=== PATIENT | male | born 1955 | race Caucasian/White ===

== ENCOUNTER 2016-12-13 14:07 | Emergency (ER) | payer BC ==
[~2016-12-13] VITALS: Ht 180.3 cm; Wt 95.8 kg
[~2016-12-13 14:07] MED LIST: ADVAIR HFA120 INHALA IH; ALBUTEROL2.5 MG/3 M IH; ALTACE2.5 MG PO; ASPIR 8181 M1 PO; ATORVASTATIN CA80 MG PO; BENZONATATE100 MG PO; LEVAQUIN500 MG PO; LEVOFLOXACIN750 MG PO; LIPITOR80 MG PO; LITE COAT ASPI325 M1 PO; LORAZEPAM1 MG PO; METOPROLOL SUCC50 MG PO; METOPROLOL TART50 MG PO; NICOTINE PATCH1 EAC2 TD; PERCOCET 5/31 TABLET PO; PRAVACHOL80 MG PO; PREDNISONE10 MG PO; PREDNISONE20 MG PO; PROPRANOLOL HCL40 MG PO; RAMIPRIL2.5 MG PO; ROPINIROLE HCL0.5 MG PO; ROPINIROLE HCL2 MG PO; SERTRALINE HCL50 MG PO; SPIRIVA RESPIMAT4 GM IH; VENTOLIN HFA18 GM IH; ZITHROMAX Z-PA250 MG PO; ZITHROMAX500 MG PO; ZOLOFT50 MG PO
[2016-12-13] MEDS ORDERED: KEFLEX500 MG PO (20:00)
[2016-12-13 20:07] VITALS: BP 130/83
== END 2016-12-13 20:12 | disposition home or self-care (01) ==
LOC: EME 14:07
DX: L03.116 Cellulitis of left lower limb (principal); M79.605 Pain in left leg; E78.5 Hyperlipidemia, unspecified; I10 Essential (primary) hypertension; I25.2 Old myocardial infarction; F17.200 Nicotine dependence, unspecified, uncomplicated; Z95.5 Presence of coronary angioplasty implant and graft; Z88.0 Allergy status to penicillin
CPT/HCPCS: 93926; 93971; 99281; 99284

== ENCOUNTER 2017-09-03 06:33 | Observation (INO) | payer BC ==
[~2017-09-03] VITALS: Ht 180.3 cm; Wt 90.6 kg
[~2017-09-03 06:33] MED LIST changes: +KEFLEX500 MG PO
[2017-09-03 07:12] LABS: BASOPHIL COUNT 0.1 K/uL (0-0.1); EOSINOPHIL (%) 3.2 % (0-5); EOSINOPHIL COUNT 0.3 K/uL (0-0.3); HEMATOCRIT 49.2 % (38.0-50.0); IMMATURE GRANULOCYTE (%) 0.2 % (0.0-0.7); INSTRUMENT ABS NEUTROPHIL CT 5.4 K/uL; LYMPHOCYTE COUNT 2.1 K/uL (1.0-2.8); MCH 33.8 PG (29.0-34.0); MCHC 34.1 G/DL (30.0-36.0); MEAN PLAT.VOLUME 9.6 uM^3 (9.0-12.4); MONOCYTE (%) 8.7 % (3-12); MONOCYTE COUNT 0.8 K/uL (0-0.8); NEUTROPHIL (%) 62.5 % (45-76); NEUTROPHIL COUNT 5.4 K/uL (1.8-6.4); PLATELET COUNT 297 K/uL (156-360); RBC DIS.WIDTH-CV 13.6 % (11.8-14.6); RBC DIS.WIDTH-SD 49.9 % (39-53); RED BLOOD COUNT 4.97 M/uL (4.00-5.50); WHITE BLOOD COUNT 8.7 K/uL (4.1-10.2)
[2017-09-03 07:36] LABS: ANION GAP 7 MEQ/L (2-14); CHLORIDE 102 MEQ/L (99-109); POTASSIUM 4.7 MEQ/L (3.7-5.4); SAMPLE HEMOLYSIS CHECK 0; SAMPLE ICTERIC CHECK 0; SAMPLE LIPEMIA CHECK 0; SODIUM 136 MEQ/L (136-147)
[2017-09-03 07:41] LABS: TROP-I INTERPRETATION NEGATIVE; TROPONIN-I < 0.01 ng/mL (0.0-0.30)
[2017-09-03 07:42] LABS: GFR ESTIMATE (CALCULATED) > 59 mL/min/; GLUCOSE 113 mg/dL (70-99); UREA NITROGEN (BUN) 11 mg/dL (9-23)
[2017-09-03] MEDS ORDERED: COUMADIN5 MG PO (08:53)
[2017-09-03 10:28] VITALS: BP 129/81
[2017-09-03 14:39] LABS: TROP-I INTERPRETATION NEGATIVE; TROPONIN-I 0.01 ng/mL (0.0-0.30)
[2017-09-03 14:54] VITALS: BP 106/60
[2017-09-03 17:06] LABS: INTER. NORMALIZED RATIO 1.1; PROTHROMBIN TIME 12.2 SEC (10.2-12.9)
[2017-09-03 20:00] VITALS: BP 171/70
[2017-09-03 20:20] LABS: TROP-I INTERPRETATION NEGATIVE; TROPONIN-I < 0.01 ng/mL (0.0-0.30)
[2017-09-03 20:56] VITALS: BP 127/68
[2017-09-03 23:51] VITALS: BP 112/61
[2017-09-04 04:13] VITALS: BP 128/86
[2017-09-04 06:03] LABS: INTER. NORMALIZED RATIO 1.1; PROTHROMBIN TIME 12.4 SEC (10.2-12.9)
[2017-09-04 09:08] VITALS: BP 115/75
[2017-09-04] MEDS ORDERED: LIPITOR20 MG PO (09:40)
[2017-09-04] MEDS ORDERED: NITROSTAT0.4 MG SL (09:40)
[2017-09-04] MEDS ORDERED: ASPIRIN81 M2 PO (09:40)
== END 2017-09-04 10:34 | disposition home or self-care (01) ==
LOC: EME 06:33 → EDOF 08:28 → 5WEST 08:28 → ENRESERV 08:30 → 5WEST 10:25
PROVIDERS: Emergency Medicine; Internal Medicine
DX: R07.9 Chest pain, unspecified (principal); I25.10 Atherosclerotic heart disease of native coronary artery without angina pectoris; E78.5 Hyperlipidemia, unspecified; I10 Essential (primary) hypertension; Z95.5 Presence of coronary angioplasty implant and graft; I25.2 Old myocardial infarction; I28.1 Aneurysm of pulmonary artery; J90 Pleural effusion, not elsewhere classified; J44.9 Chronic obstructive pulmonary disease, unspecified; F17.210 Nicotine dependence, cigarettes, uncomplicated; G25.81 Restless legs syndrome; Z87.442 Personal history of urinary calculi; F41.9 Anxiety disorder, unspecified; Z79.01 Long term (current) use of anticoagulants; Z90.49 Acquired absence of other specified parts of digestive tract; Z88.0 Allergy status to penicillin; Z82.49 Family history of ischemic heart disease and other diseases of the circulatory system
CPT/HCPCS: 71010; 80048; 84484; 85025; 85610; 93005; 94640; 94640 76; 99202; 99281; 99285; G0378; J1650

== ENCOUNTER 2017-09-19 13:20 | Inpatient (IN) | payer BC ==
[~2017-09-19] VITALS: Ht 180.3 cm; Wt 86.2 kg
[~2017-09-19 13:20] MED LIST changes: +ASPIRIN81 M2 PO; +COUMADIN5 MG PO; +LIPITOR20 MG PO; +NITROSTAT0.4 MG SL; +ZOLOFT100 MG PO; -ZOLOFT50 MG PO
[2017-09-19 14:21] LABS: HEMATOCRIT 46.8 % (38.0-50.0); MCHC 33.8 G/DL (30.0-36.0); MCV 97.7 FL (86-99); MEAN PLAT.VOLUME 10.3 uM^3 (9.0-12.4); PLATELET COUNT 230 K/uL (156-360); RBC DIS.WIDTH-CV 12.9 % (11.8-14.6); RBC DIS.WIDTH-SD 46.5 % (39-53); RED BLOOD COUNT 4.79 M/uL (4.00-5.50); WHITE BLOOD COUNT 13.5 K/uL (4.1-10.2)
[2017-09-19 14:51] LABS: ANION GAP 9 MEQ/L (2-14); CHLORIDE 98 MEQ/L (99-109); GFR ESTIMATE (CALCULATED) > 59 mL/min/; GLUCOSE 112 mg/dL (70-99); POTASSIUM 4.7 MEQ/L (3.7-5.4); SAMPLE HEMOLYSIS CHECK 0; SAMPLE ICTERIC CHECK 0; SAMPLE LIPEMIA CHECK 0; SODIUM 134 MEQ/L (136-147); UREA NITROGEN (BUN) 16 mg/dL (9-23)
[2017-09-19 15:18] LABS: BASE EXCESS 0.8 mEq/L (-3 to +3); BICARBONATE 24.3 mEq/L (22-26); CARBOXY HGB 2.8 % (0-5); COMMENTS - BLOOD GASES A+C+; DEVICE NC; METHEMOGLOBIN 1.1 % (0-1.5); O2 FLOW 6 L/MIN; PCO2 35 mm Hg (35-45); PO2 77 mm Hg (80-100); SITE RR; TOTAL RESP RATE 31 resp/min; pH 7.45 (7.35-7.45)
[2017-09-19 15:48] LABS: TROP-I INTERPRETATION NEGATIVE; TROPONIN-I 0.12 ng/mL (0.0-0.30)
[2017-09-19] MEDS ORDERED: ASPIR 8181 M1 PO (16:23)
[2017-09-19] MEDS ORDERED: ATORVASTATIN CA20 MG PO (16:23)
[2017-09-19] MEDS ORDERED: ALBUTEROL2.5 MG/3 M IH (16:24)
[2017-09-19 17:09] LABS: INTER. NORMALIZED RATIO 1.4; PROTHROMBIN TIME 15.5 SEC (10.2-12.9)
[2017-09-19 20:10] VITALS: BP 119/70
[2017-09-20] VITALS (7 sets, daily range): BP systolic 99–123; BP diastolic 54–75
[2017-09-20 15:22] LABS: INTER. NORMALIZED RATIO 1.5
[2017-09-21 05:04] VITALS: BP 120/63
[2017-09-21 05:45] LABS: HEMATOCRIT 41.3 % (38.0-50.0); MCH 33.1 PG (29.0-34.0); MCHC 34.1 G/DL (30.0-36.0); MCV 96.9 FL (86-99); MEAN PLAT.VOLUME 10.3 uM^3 (9.0-12.4); PLATELET COUNT 288 K/uL (156-360); RBC DIS.WIDTH-CV 12.8 % (11.8-14.6); RED BLOOD COUNT 4.26 M/uL (4.00-5.50); WHITE BLOOD COUNT 18.5 K/uL (4.1-10.2)
[2017-09-21 05:47] LABS: INTER. NORMALIZED RATIO 1.6; PROTHROMBIN TIME 18.8 SEC (10.2-12.9)
[2017-09-21 06:39] LABS: ANION GAP 4 MEQ/L (2-14); CHLORIDE 97 MEQ/L (99-109); GFR ESTIMATE (CALCULATED) > 59 mL/min/; POTASSIUM 4.9 MEQ/L (3.7-5.4); SAMPLE HEMOLYSIS CHECK 0; SAMPLE ICTERIC CHECK 0; SAMPLE LIPEMIA CHECK 0; SODIUM 132 MEQ/L (136-147); UREA NITROGEN (BUN) 24 mg/dL (9-23)
[2017-09-21 06:42] LABS: GLUCOSE 181 mg/dL (70-99)
[2017-09-21 07:00] VITALS: BP 121/71
[2017-09-21 11:36] VITALS: BP 112/72
[2017-09-21 16:33] VITALS: BP 136/70
[2017-09-21 19:47] VITALS: BP 124/70
[2017-09-22] VITALS (8 sets, daily range): BP systolic 110–168; BP diastolic 58–82
[2017-09-22 05:49] LABS: INTER. NORMALIZED RATIO 2.1; PROTHROMBIN TIME 24.6 SEC (10.2-12.9)
[2017-09-23 04:36] VITALS: BP 140/70
[2017-09-23 04:49] LABS: HEMATOCRIT 43.1 % (38.0-50.0); MCH 33.1 PG (29.0-34.0); MCHC 33.9 G/DL (30.0-36.0); MCV 97.7 FL (86-99); MEAN PLAT.VOLUME 9.6 uM^3 (9.0-12.4); PLATELET COUNT 322 K/uL (156-360); RBC DIS.WIDTH-CV 12.6 % (11.8-14.6); RBC DIS.WIDTH-SD 45.7 % (39-53); RED BLOOD COUNT 4.41 M/uL (4.00-5.50); WHITE BLOOD COUNT 14.3 K/uL (4.1-10.2)
[2017-09-23 04:54] LABS: INTER. NORMALIZED RATIO 3.5; PROTHROMBIN TIME 39.8 SEC (10.2-12.9)
[2017-09-23 05:02] LABS: CHLORIDE 99 mEq/L (99-109); POTASSIUM 4.8 mEq/L (3.7-5.4); SODIUM 135 mEq/L (136-147)
[2017-09-23 05:04] LABS: GLUCOSE 181 mg/dL (70-99)
[2017-09-23 05:05] LABS: ANION GAP 6 MEQ/L (2-14)
[2017-09-23 05:08] LABS: GFR ESTIMATE (CALCULATED) > 59 mL/min/
[2017-09-23 05:09] LABS: UREA NITROGEN (BUN) 16 mg/dL (9-23)
[2017-09-23 07:28] VITALS: BP 135/81
[2017-09-23] MEDS ORDERED: CARVEDILOL3.125 MG PO (09:37)
[2017-09-23] MEDS ORDERED: ADVAIR HFA120 INHALA IH (09:37)
[2017-09-23] MEDS ORDERED: LISINOPRIL2.5 MG PO (09:37)
[2017-09-23] MEDS ORDERED: LEVAQUIN500 MG PO (09:38)
[2017-09-23] MEDS ORDERED: PREDNISONE20 MG PO (09:39)
== END 2017-09-23 10:17 | disposition home health service (06) | DRG 189 ==
LOC: EME 13:20 → 4EAST 16:18 → EDOF 16:18 → ENRESERV 16:19 → 4EAST 20:35
PROVIDERS: Emergency Medicine; Hospitalist; Internal Medicine
DX: J96.01 Acute respiratory failure with hypoxia (principal); J44.1 Chronic obstructive pulmonary disease with (acute) exacerbation; J44.0 Chronic obstructive pulmonary disease with (acute) lower respiratory infection; J20.9 Acute bronchitis, unspecified; I28.1 Aneurysm of pulmonary artery; I27.20 Pulmonary hypertension, unspecified; E87.1 Hypo-osmolality and hyponatremia; I25.10 Atherosclerotic heart disease of native coronary artery without angina pectoris; I10 Essential (primary) hypertension; E78.5 Hyperlipidemia, unspecified; G25.81 Restless legs syndrome; I25.2 Old myocardial infarction; F32.9 Major depressive disorder, single episode, unspecified; F41.9 Anxiety disorder, unspecified; F17.200 Nicotine dependence, unspecified, uncomplicated; Z79.82 Long term (current) use of aspirin; Z82.49 Family history of ischemic heart disease and other diseases of the circulatory system; Z86.718 Personal history of other venous thrombosis and embolism; Z95.5 Presence of coronary angioplasty implant and graft
CPT/HCPCS: 36600; 71020; 71250; 80048; 82803; 84484; 85027; 85610; 87040; 87070; 87205; 93005; 94640; 94640 76; 94644; 94799; 99202; 99281; 99285; J0692; J2930

== ENCOUNTER 2018-05-24 00:57 | Observation (INO) | payer BC ==
[~2018-05-24] VITALS: Ht 180.3 cm; Wt 86.2 kg
[~2018-05-24 00:57] MED LIST changes: +ATORVASTATIN CA20 MG PO; +CARVEDILOL3.125 MG PO; +LISINOPRIL2.5 MG PO; +PROAIR HFA8.5 GM IH
[2018-05-24 01:26] LABS: HEMATOCRIT 44.1 % (38.0-50.0); HEMOGLOBIN 15.3 G/DL (12.5-16.6); MCH 33.8 PG (29.0-34.0); MCHC 34.7 G/DL (30.0-36.0); MCV 97.6 FL (86-99); PLATELET COUNT 270 K/uL (156-360); RBC DIS.WIDTH-CV 14.6 % (11.8-14.6); RBC DIS.WIDTH-SD 53.1 % (39-53); RED BLOOD COUNT 4.52 M/uL (4.00-5.50); WHITE BLOOD COUNT 11.8 K/uL (4.1-10.2)
[2018-05-24 02:01] LABS: TROP-I INTERPRETATION NEGATIVE; TROPONIN-I < 0.01 ng/mL (0.0-0.30)
[2018-05-24 02:05] LABS: ALBUMIN 4.1 G/DL (3.2-4.8); ALKALINE PHOSPHATASE 67 IU/L (3-129); ALT (GPT) 10 IU/L (3-49); AST (GOT) 14 IU/L (2-34); CHLORIDE 106 MEQ/L (99-109); CREATININE 0.8 MG/DL (0.6-1.3); GFR ESTIMATE (CALCULATED) > 59 mL/min/ (58.99-99999); GLUCOSE 123 mg/dL (70-99); POTASSIUM 4.4 MEQ/L (3.7-5.4); SODIUM 140 MEQ/L (136-147); TOTAL BILIRUBIN 0.3 MG/DL (0.0-1.0); UREA NITROGEN (BUN) 16 mg/dL (9-23)
[2018-05-24 04:16] VITALS: BP 123/78
[2018-05-24 08:28] VITALS: BP 136/68
[2018-05-24 09:14] LABS: TROP-I INTERPRETATION NEGATIVE; TROPONIN-I < 0.01 ng/mL (0.0-0.30)
[2018-05-24 09:15] LABS: HDL CHOLESTEROL 44 MG/DL (Desirable>=40); LDL CHOLESTEROL 121 mg/dL (Desirable<100); NON-HDL CHOLESTEROL 131 mg/dL (Desirable<160); TOTAL CHOLESTEROL 175 mg/dL (Desirable<200); TRIGLYCERIDES 52 MG/DL (Normal: <150)
[2018-05-24 11:28] VITALS: BP 122/72
[2018-05-24 14:42] LABS: TROP-I INTERPRETATION NEGATIVE; TROPONIN-I < 0.01 ng/mL (0.0-0.30)
[2018-05-24 15:56] VITALS: BP 136/74
[2018-05-24 20:31] VITALS: BP 133/75
[2018-05-24 23:58] VITALS: BP 112/81
[2018-05-25 04:05] VITALS: BP 110/66
[2018-05-25 05:49] LABS: INTER. NORMALIZED RATIO 1.1
[2018-05-25 07:02] VITALS: BP 123/69
[2018-05-25] MEDS ORDERED: PREDNISONE10 MG PO (08:41)
[2018-05-25] MEDS ORDERED: AZITHROMYCIN500 M1 PO (08:41)
== END 2018-05-25 09:30 | disposition home or self-care (01) ==
LOC: EME 00:57 → EDOF 03:07 → 4SOUTH 03:54 → ENPENDDIS 05-25 → 4SOUTH 05-25 09:30
PROVIDERS: Physician Assistant Medical
DX: R42 Dizziness and giddiness (principal); R07.89 Other chest pain; J44.1 Chronic obstructive pulmonary disease with (acute) exacerbation; R09.02 Hypoxemia; I25.10 Atherosclerotic heart disease of native coronary artery without angina pectoris; Z95.5 Presence of coronary angioplasty implant and graft; I25.2 Old myocardial infarction; Z86.718 Personal history of other venous thrombosis and embolism; I10 Essential (primary) hypertension; E78.5 Hyperlipidemia, unspecified; F17.210 Nicotine dependence, cigarettes, uncomplicated; J90 Pleural effusion, not elsewhere classified; G25.81 Restless legs syndrome; I28.1 Aneurysm of pulmonary artery; F32.9 Major depressive disorder, single episode, unspecified; F41.0 Panic disorder [episodic paroxysmal anxiety]; Z87.442 Personal history of urinary calculi; Z90.49 Acquired absence of other specified parts of digestive tract; Z82.49 Family history of ischemic heart disease and other diseases of the circulatory system; Z80.0 Family history of malignant neoplasm of digestive organs; Z79.82 Long term (current) use of aspirin; Z79.02 Long term (current) use of antithrombotics/antiplatelets; Z79.01 Long term (current) use of anticoagulants; Z88.0 Allergy status to penicillin
CPT/HCPCS: 71046; 80048; 80061; 80076; 81003; 83880; 84484; 85027; 85610; 93005; 94640; 94799; 99281; 99285; G0378; J2930